=== PATIENT | female | born 1995 | race Two or more races ===

== ENCOUNTER → 2016-10-05 00:14 | Emergency (ER) | payer OTHER ==
[2016-10-05 00:25] VITALS: BP 97/62
== END | disposition left against medical advice (07) ==
LOC: ED 00:14
DX: R53.1 Weakness (principal); Z53.21 Procedure and treatment not carried out due to patient leaving prior to being seen by health care provider

== ENCOUNTER 2017-04-14 13:04 | Emergency (ER) | payer OTHER ==
--- NOTE | 2017-04-14 14:47 | ED ---
Complex/Multi-Sys Presentation - History Of Current Complaint Chief Complaint: EDGeneral Time Seen by Provider: 04/14/17 13:27 - Allergies/Home Medications Allergies/Adverse Reactions: Allergies Allergy/AdvReac Type Severity Reaction Status Date / Time No Known Allergies Allergy Verified 02/26/15 20:39 PMH/Surg Hx/FS Hx/Imm Hx Infectious Disease History: No Infectious Disease History: Denies: Traveled Outside the [place] in Last 30 Days - Social History Alcohol Use: None Substance Use Type: Reports: None Smoking Status (MU): Never Smoked Tobacco Physical Exam Vital Signs On Initial Exam: Initial Vitals Temp Pulse Resp BP Pulse Ox 98.5 F 132 20 136/89 100 04/14/17 13:13 04/14/17 13:13 04/14/17 13:13 04/14/17 13:13 04/14/17 13:13 Diagnostics - Vital Signs Vital Signs Temp Pulse Resp BP Pulse Ox 04/14/17 13:13 98.5 F 132 20 136/89 100 - Laboratory Lab Statement: Any lab studies that have been ordered have been reviewed, and results considered in the medical decision making process. Complex Multi-Symp Course/Dx - Diagnoses Provider Diagnoses: Encounter for medication refill Discharge - Discharge Plan Condition: Stable Disposition: HOME Patient Education Materials: Quetiapine (By mouth) Referrals: [facility] - Domo QUIÑONEZ [Primary Care Provider] - [facility] [employer] [[employer], APPLICATION, OTHER] - Additional Instructions: Please follow up to be seen by psychiatrist as soon as possible. Recommend calling again and possibly getting a new psychiatrist.
[2017-04-14 15:06] VITALS: BP 116/77
== END 2017-04-14 15:07 | disposition home or self-care (01) ==
LOC: ED 13:04
DX: Z76.0 Encounter for issue of repeat prescription (principal)
CPT/HCPCS: 99282

== ENCOUNTER 2017-09-19 18:34 | Inpatient (IN) | payer OTHER ==
[2017-09-19 19:29] LABS: ABS Basophils 0 10^3/ul (0-0.2); ABS Eosinophils 0.2 10^3/ul (0-0.6); ABS Lymphocytes 1.2 10^3/ul (1.0-4.8); ABS Monocytes 0.5 10^3/ul (0-0.8); ABS Neutrophils 5.5 10^3/ul (1.5-7.7); ABS Nucleated RBC 0 10^3/ul; Eosinophil % 3.1 % (0-6); Hematocrit 40 % (35-47); Hemoglobin 13.8 g/dl (12.0-16.0); Lymphocyte % 16.2 % (25-47); Mean Corpuscular HGB Conc 34 g/dl (31-36); Mean Corpuscular Hemoglobin 33 pg (27-31); Mean Corpuscular Volume 95 fL (80-97); Mean Platelet Volume 6.1 um3 (7.4-10.4); Nucleated Red Blood Cells % 0.1; Platelet Count 355 10^3/ul (150-450); Red Blood Count 4.24 10^6/ul (4.0-5.4); Red Cell Distribution Width 14 % (10.5-15); White Blood Count 7.5 10^3/ul (3.5-10.8)
[2017-09-19 19:53] LABS: EGFR Non-African American 64.7 (>60)
[2017-09-19 20:17] LABS: Urine Appearance Clear; Urine Blood Negative (Negative); Urine Color Yellow; Urine Ketones Negative (Negative); Urine Protein Negative (Negative); Urine Specific Gravity 1.014 (1.010-1.030); Urine Urobilinogen Negative (Negative)
--- NOTE | 2017-09-20 01:03 | ED ---
Krystin Burgess Jason, scribed for Lucinda Dudley MD on 09/19/17 at 1911 . Psychiatric Complaint - HPI Summary HPI Summary: This patient is a 21 year old F BIBA to [facility] with a chief complaint of SI since this afternoon. She states she took 20 pills of 2 mg of Xanax pills along with a glass of wine. I did this because I got dumped today and my friends called the ambulance. The patient includes that her last menstrual period was 2 days ago. It lasted 1 day because I have an IUD. The patient rates the pain 0/10 in severity. Symptoms aggravated by social stress. Symptoms alleviated by nothing. Patient denies auditory hallucinations, visual hallucinations, and HI. Additionally, she has a history of anxiety, bipolar disorder, and ADD. - History Of Current Complaint Chief Complaint: EDMentalHealth Time Seen by Provider: 09/19/17 18:52 Hx Obtained From: Patient Onset/Duration: Sudden Onset, Resolved Timing: Constant Aggravating Factor(s): Recent Stress - breakup with significant other Alleviating Factor(s): Nothing Associated Signs And Symptoms: Positive: Negative - auditory hallucinations, visual hallucinations, and SI Has Suicidal: Reports: Thoughts, Demonstrates Gesture - took 20 2 mg xanax pills Has Homicidal: Denies: Thoughts - Allergies/Home Medications Allergies/Adverse Reactions: Allergies Allergy/AdvReac Type Severity Reaction Status Date / Time No Known Allergies Allergy Verified 02/26/15 20:39 Home Medications: Home Medications ALPRAZolam TAB* [Xanax TAB*] 2 mg PO DAILY PRN 09/19/17 [History Confirmed 09/19] Dextroamphetamine/Amphetamine [Dextroamp-Amphetamin 30 mg Tab] 30 mg PO DAILY [History Confirmed 09/19/17] [place] Carbonate TAB* 300 mg PO DAILY 09/19/17 [History Confirmed 09/19/17] QUEtiapine TAB* [SEROquel TAB*] 100 - 200 mg PO BEDTIME 09/19/17 [History Confirmed 09/19/17] PMH/Surg Hx/FS Hx/Imm Hx Previously Healthy: No Endocrine/Hematology History: Denies: Hx Diabetes Cardiovascular History: Denies: Hx Hypertension Psychiatric History: Reports: Hx Anxiety, Hx Bipolar Disorder - Surgical History Surgery Procedure, Year, and Place: n/a Hx Anesthesia Reactions: No Infectious Disease History: No Infectious Disease History: Denies: Traveled Outside the [place] in Last 30 Days - Family History Known Family History: Positive: Diabetes, Other - cancer - Social History Alcohol Use: Occasionally Substance Use Type: Reports: None Smoking Status (MU): Never Smoked Tobacco Review of Systems Psychological: Other - Negative HI, auditory hallucinations, and visual hallucinations Positive: Other - SI All Other Systems Reviewed And Are Negative: Yes Physical Exam - Summary Physical Exam Summary: GENERAL: ~Patient is a well-developed and nourished F who is lying comfortable in the stretcher. ~Patient is not in any acute respiratory distress. HEAD AND FACE: Normocephalic EYES: PERRLA, EOMI x 2. EARS: Hearing grossly intact. MOUTH: Oropharynx within normal limits. NECK: Supple, trachea is midline, no adenopathy, no JVD, no carotid bruit. CHEST: Symmetric, no tenderness at palpation LUNGS: Clear to auscultation bilaterally. No wheezing or crackles. CVS: Regular rate and rhythm, S1 and S2 present, no murmurs or gallops appreciated. ABDOMEN: Soft, non-tender. Bowel sounds are normal. No abdominal abnormal pulsations. EXTREMITIES: Full ROM in all major joints, no edema, no cyanosis or clubbing. NEURO: Alert and oriented x 3. No acute neurological deficits. Speech is normal and follows commands. SKIN: Dry and warm Psych: Positive SI, no HI, no visual or auditory hallucinations. Good insight. Linear thought process and content. Triage Information Reviewed: Yes Vital Signs On Initial Exam: Initial Vitals Temp Pulse Resp BP Pulse Ox 99.0 F 110 16 97/54 100 09/19/17 18:49 09/19/17 18:49 09/19/17 18:49 09/19/17 18:49 09/19/17 18:49 Vital Signs Reviewed: Yes Diagnostics - Vital Signs Vital Signs Temp Pulse Resp BP Pulse Ox 09/19/17 18:49 99.0 F 110 16 97/54 100 - Laboratory Result Diagrams: 09/19/17 19:21 09/19/17 19:21 Lab Statement: Any lab studies that have been ordered have been reviewed, and results considered in the medical decision making process. - EKG 1934 Cardiac Rate: NL EKG Rhythm: Sinus Rhythm - 89 bpm Ectopy: None Course/Dx - Course Course Of Treatment: Patient was cleared for a mental health evaluation at 1999 Assessment/Plan: Patient was evaluated by Dr. Modi (psychiatrist) and, at 2304 , Bipin Soto reported to Dr. Dudley that the psychiatrist recommends involuntary admission. The patient is agreeable with this plan. - Differential Dx/Clinical Impression Provider Diagnosis: Depression Discharge - Sign-Out/Discharge Documenting (check all that apply): Discharge - Discharge Plan Condition: Stable Disposition: ADMITTED TO [facility] Referrals: [facility] - Domo QUIÑONEZ [Primary Care Provider] - The documentation as recorded by the Krystin aleman Jason accurately reflects the service I personally performed and the decisions made by , Lucinda Dudley MD.
--- NOTE | 2017-09-20 14:54 | PN ---
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 Patient denies SI but school and friends are extremely concerned about her safety. Objective: young female; irritable; labile Assessment: Bipolar [place] Plan: No available adult beds on the [facility]. Will transfer to appropriate [facility] receiving facility. Vital Signs Temp Pulse Resp BP Pulse Ox 97.1 F 85 16 88/62 85 09/20/17 10:09 09/20/17 10:09 09/20/17 10:09 09/20/17 10:09 09/20/17 10:09 Lab Results - Entire Visit 09/19/17 09/19/17 09/19/17 20:08 20:08 19:21 WBC 7.5 RBC 4.24 Hgb 13.8 Hct 40 MCV 95 MCH 33 H MCHC 34 RDW 14 Plt Count 355 MPV 6.1 L Neut % (Auto) 73.5 Lymph % (Auto) 16.2 L [place] % (Auto) 6.5 Eos % (Auto) 3.1 Baso % (Auto) 0.7 Absolute Neuts (auto) 5.5 Absolute Lymphs (auto) 1.2 Absolute Monos (auto) 0.5 Absolute Eos (auto) 0.2 Absolute Basos (auto) 0 Absolute Nucleated RBC 0 Nucleated RBC % 0.1 Sodium Potassium Chloride Carbon Dioxide Anion Gap BUN Creatinine Est GFR ( Amer) Est GFR (Non-Af Amer) BUN/Creatinine Ratio Glucose Calcium Total Bilirubin AST ALT Alkaline Phosphatase Total Protein Albumin Globulin Albumin/Globulin Ratio TSH Beta HCG, Quant Urine Color Yellow Urine Appearance Clear Urine pH 6.0 Ur Specific [place] 1.014 Urine Protein Negative Urine Ketones Negative Urine Blood Negative Urine Nitrate Negative Urine Bilirubin Negative Urine Urobilinogen Negative Ur Leukocyte Esterase Negative Urine Glucose Negative Salicylates Urine Opiates Screen None detected Acetaminophen Ur Barbiturates Screen None detected Ur Phencyclidine Scrn None detected Ur Amphetamines Screen Presumptive positive A U Benzodiazepines Scrn Presumptive positive A [place] Urine Cocaine Screen Presumptive positive A U Cannabinoids Screen None detected Serum Alcohol 09/19/17 19:21 WBC RBC Hgb Hct MCV MCH MCHC RDW Plt Count MPV Neut % (Auto) Lymph % (Auto) [place] % (Auto) Eos % (Auto) Baso % (Auto) Absolute Neuts (auto) Absolute Lymphs (auto) Absolute Monos (auto) Absolute Eos (auto) Absolute Basos (auto) Absolute Nucleated RBC Nucleated RBC % Sodium 140 Potassium 3.5 Chloride 105 Carbon Dioxide 29 Anion Gap 6 BUN 19 Creatinine 1.07 H Est GFR ( Amer) 83.2 Est GFR (Non-Af Amer) 64.7 BUN/Creatinine Ratio 17.8 Glucose 97 Calcium 9.3 Total Bilirubin 0.40 AST 15 ALT 9 Alkaline Phosphatase 50 Total Protein 6.8 Albumin 4.2 Globulin 2.6 Albumin/Globulin Ratio 1.6 TSH 0.58 Beta HCG, Quant < 0.60 Urine Color Urine Appearance Urine pH Ur Specific [place] Urine Protein Urine Ketones Urine Blood Urine Nitrate Urine Bilirubin Urine Urobilinogen Ur Leukocyte Esterase Urine Glucose Salicylates < 2.50 Urine Opiates Screen Acetaminophen < 15 Ur Barbiturates Screen Ur Phencyclidine Scrn Ur Amphetamines Screen U Benzodiazepines Scrn [place] < 0.10 L Urine Cocaine Screen U Cannabinoids Screen Serum Alcohol < 10
[2017-09-20] MEDS ORDERED: Nicotine PATCH 14 MG/24 HR* PATCH TRANSDERM ONE (19:21)
[2017-09-20] MEDS ORDERED: QUEtiapine TAB* 100 MG PO ONE (21:10)
[2017-09-20] MEDS ORDERED: Lithium Carbonate TAB* 300 MG PO ONE (21:10)
--- NOTE | 2017-09-21 06:46 | ED ---
Akbar Burgess Nikita, scribed for Matt Vergara MD on 09/20/17 at 205 . Progress - Progress Note Progress Note: The patient was signed out to Dr. Vergara, awaiting bed in [facility]. In the ED course, the patient was given a nicotine patch 14mg. This patient is signed out to Dr. Malloy, awaiting bed in [facility]. - Consult/PCP Time Called: 21:40 Course/Dx - Course Course Of Treatment: Patient was cleared for a mental health evaluation at 1999 - Diagnoses Provider Diagnoses: Depression Discharge - Sign-Out/Discharge Documenting (check all that apply): Sign-Out Patient Signing out patient TO: Radu Malloy - Discharge Plan Condition: Stable Disposition: ADMITTED TO [facility] Referrals: [facility] - Domo [Primary Care Provider] - - Billing Disposition and Condition Condition: STABLE Disposition: [facility] The documentation as recorded by the Akbar aleman Nikita accurately reflects the service I personally performed and the decisions made by Jai miller Kirk, MD.
--- NOTE | 2017-09-21 08:50 | PN ---
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 Patient denies SI but school and friends remain extremely concerned about her safety. Objective: young female; irritable; labile Assessment: Bipolar Alda Plan: No available adult beds on the [facility]. Will transfer to appropriate [facility] receiving facility. Vital Signs Temp Pulse Resp BP Pulse Ox 97.9 F 87 16 102/74 98 09/20/17 21:30 09/20/17 21:30 09/20/17 21:30 09/20/17 21:30 09/20/17 21:30 Lab Results - Entire Visit 09/19/17 09/19/17 09/19/17 20:08 20:08 19:21 WBC 7.5 RBC 4.24 Hgb 13.8 Hct 40 MCV 95 MCH 33 H MCHC 34 RDW 14 Plt Count 355 MPV 6.1 L Neut % (Auto) 73.5 Lymph % (Auto) 16.2 L [place] % (Auto) 6.5 Eos % (Auto) 3.1 Baso % (Auto) 0.7 Absolute Neuts (auto) 5.5 Absolute Lymphs (auto) 1.2 Absolute Monos (auto) 0.5 Absolute Eos (auto) 0.2 Absolute Basos (auto) 0 Absolute Nucleated RBC 0 Nucleated RBC % 0.1 Sodium Potassium Chloride Carbon Dioxide Anion Gap BUN Creatinine Est GFR ( Amer) Est GFR (Non-Af Amer) BUN/Creatinine Ratio Glucose Calcium Total Bilirubin AST ALT Alkaline Phosphatase Total Protein Albumin Globulin Albumin/Globulin Ratio TSH Beta HCG, Quant Urine Color Yellow Urine Appearance Clear Urine pH 6.0 Ur Specific [place] 1.014 Urine Protein Negative Urine Ketones Negative Urine Blood Negative Urine Nitrate Negative Urine Bilirubin Negative Urine Urobilinogen Negative Ur Leukocyte Esterase Negative Urine Glucose Negative Salicylates Urine Opiates Screen None detected Acetaminophen Ur Barbiturates Screen None detected Ur Phencyclidine Scrn None detected Ur Amphetamines Screen Presumptive positive A U Benzodiazepines Scrn Presumptive positive A [place] Urine Cocaine Screen Presumptive positive A U Cannabinoids Screen None detected Serum Alcohol 09/19/17 19:21 WBC RBC Hgb Hct MCV MCH MCHC RDW Plt Count MPV Neut % (Auto) Lymph % (Auto) [place] % (Auto) Eos % (Auto) Baso % (Auto) Absolute Neuts (auto) Absolute Lymphs (auto) Absolute Monos (auto) Absolute Eos (auto) Absolute Basos (auto) Absolute Nucleated RBC Nucleated RBC % Sodium 140 Potassium 3.5 Chloride 105 Carbon Dioxide 29 Anion Gap 6 BUN 19 Creatinine 1.07 H Est GFR ( Amer) 83.2 Est GFR (Non-Af Amer) 64.7 BUN/Creatinine Ratio 17.8 Glucose 97 Calcium 9.3 Total Bilirubin 0.40 AST 15 ALT 9 Alkaline Phosphatase 50 Total Protein 6.8 Albumin 4.2 Globulin 2.6 Albumin/Globulin Ratio 1.6 TSH 0.58 Beta HCG, Quant < 0.60 Urine Color Urine Appearance Urine pH Ur Specific [place] Urine Protein Urine Ketones Urine Blood Urine Nitrate Urine Bilirubin Urine Urobilinogen Ur Leukocyte Esterase Urine Glucose Salicylates < 2.50 Urine Opiates Screen Acetaminophen < 15 Ur Barbiturates Screen Ur Phencyclidine Scrn Ur Amphetamines Screen U Benzodiazepines Scrn [place] < 0.10 L Urine Cocaine Screen U Cannabinoids Screen Serum Alcohol < 10
--- NOTE | 2017-09-21 09:58 | PN ---
Progress Note - Progress Note Date of Service: 09/21/17 Note: ED Flex day #2 for this 21 y.o. [employer] with a history of bipolar disorder who came in following an intentional OD on drugs and medications. Patient denies SI but school and friends are extremely concerned about her safety. Subjective: Patient denies any complaints or concerns at this time. Reports no need for medications or additions to medical plan established for patient. Did not sleep well. Does not want medications at this time for pain or any other reason. Objective: VS stable No change to current medications Alert and cooperative. Appearance: WDW, comfortable, pleasant, alert Skin: Soft dry skin, no lesions. Eyes: ROSA, EOMI, Conjunctiva pink with no redness or exudates. Neck: Full range of motion. Pulm: Chest symmetrical expansion. No deformities on posterior chest wall. Lungs clear to auscultation and percussion, without adventitious sounds. CV: Heart soundsRRR, Normal S1 and single S2. No S3, S4, rubs, or murmurs. Musculoskeletal: ROM WNL in all extremities. No deformities noted. Neuro: A&OX3 Psych: Logical, coherent Assessment: Patient has participated in plan with compliance to medications while awaiting assessment. Dx at this time remains drug OD with intention. Bipolar. Still awaiting transfer. Plan: Continue mediations as prescribed. Will continue to monitor psych behaviors and need for any medication. Will provide a patient to provider assessment within every 24 hours during stay until safe discharge/transfer/ admission plan is established.
[2017-09-21] MEDS ORDERED: Al Hydrox/Mg Hydrox/Simet LIQ* 30 ML UDC PO PRN (17:32)
[2017-09-21] MEDS ORDERED: Acetaminophen TAB* 325 MG PO PRN (17:32)
[2017-09-21] MEDS ORDERED: Nicotine Inhaler* 10 MG AMP INH PRN (18:35)
[2017-09-21] MEDS ORDERED: Mouth Piece, Nicotine* 1 EACH CARTRIDGE INH PRN (18:35)
[2017-09-21] MEDS: Nicotine Patch Removal NOTE PATCH OFF SCH (22:12)
[2017-09-22] MEDS: Vitamin THERAPEUTIC TAB PO SCH (09:27)
[2017-09-22] MEDS ORDERED: LORazepam TAB(*) 1 MG PO SCH (11:00)
[2017-09-22] MEDS ORDERED: Gabapentin CAP(*) 100 MG PO PRN (12:04)
[2017-09-22] MEDS ORDERED: Lithium Carbonate TAB* 300 MG PO SCH ×2 (13:00→21:00)
--- NOTE | 2017-09-22 18:46 | HP ---
Amended report to enter cosigning physician. HISTORY AND PHYSICAL: DATE OF ADMISSION: 09/21/17 SUPERVISING PSYCHIATRIST: Dr. Garry Modi* (dictated by CHASIDY Ontiveros) . JUSTIFICATION FOR ADMISSION: The patient had an overdose attempt via alprazolam and told her friend who called [place] [employer], she was brought to the emergency room via police. The patient merits hospitalization for immediate safety and stabilization. CHIEF COMPLAINT: "I told a lot of people that I was trying to commit suicide." HISTORY OF PRESENT ILLNESS: Juanita is a 21-year-old [place] female, who attends [employer]. She is a senior in [employer] school and belongs to [employer]. She reports recent increase in alprazolam use along with alcohol and cocaine. She states that she frequently blacks out mostly on weekends. She states that she purposefully took excessive amounts of alprazolam while inebriated. She states that she has been in a self- destructive pattern and has mood fluctuations. She reports a history of being diagnosed with bipolar disorder after seeing a overlock elastic attacher in [facility] and told she had lithium imbalance in her brain. She identifies periods of hypomania where she is very efficient, ambitious. She also has periods of depressed mood, anhedonia, isolation, and irritability. She identifies history of panic attacks along with persistent internal anxiety. The patient states she recently broke up with her boyfriend, and then had multiple sex partners, while they were no longer dating. They reunited and he broke up with her when he found out that she had been with multiple sex partners. The patient states that she did not want to be admitted to the mental health unit, but endorses insight into need for more psychiatric services. The patient states she has been seeing local psychiatrist, Dr. Farhan Lea, for approximately 1 year and has been prescribed lithium, quetiapine, and alprazolam. She states that she is "taking more than I should" in regards to Xanax and takes up to six 2 mg bars at a time. She was unsure about her lithium , her Seroquel doses. This sports writer called [facility], verified that the lithium is prescribed 300 mg b.i.d. and quetiapine is 200 mg one-half to 1 tab q.h.s. p.r.n., alprazolam is 2 mg daily. According to [facility], she was also prescribed Adderall [address] Lea, [facility] reference # [id number]. The patient denies history of self-harm with previous suicide attempt. She denies audio or visual hallucinations, depersonalization or delusions. She denies HI or . Denies having a history of aggression or violence. PAST PSYCHIATRIC HISTORY: As stated above, the patient reports previous diagnosis of bipolar disorder and has been seeing Dr. Lea for the past year. She states she has never really pursued therapy. TRAUMA/ABUSE HISTORY: The patient reports that she and her family are emotionally distant in that she and her mother are starting to come to terms with their relationships. Junaita states her mother was often neurotic and instilled academic competition into her and her sister. Juanita denies other trauma or abuse. PAST MEDICAL HISTORY: The patient had an IUD in place approximately 6 months ago. She otherwise denies history of head injury, seizure, or surgeries. ALLERGIES: No known drug allergies. PEARL DIGGER HISTORY: LMP last week. The patient denies offer of STI testing. PRIMARY CARE PROVIDER: [facility]. Current psychiatrist, Dr. Farhan Lea, as noted above. FAMILY PSYCHIATRIC HISTORY: The patient reports her father is a heavy alcohol user. She suspects both her mother and her sister have mild mental health problems but she is not aware of any diagnosis or medications that they take. SOCIAL HISTORY: Juanita is the youngest of 2 daughters by parents who live in [place]. Both parents are attorneys. Her sister is a [employer] graduate and just finished law school in [facility]. 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 She lives off campus in a house with 20 of her sorority friends. 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 She identifies very positive social support including her friends. Her mother is here visiting from [facility]. SUBSTANCE USE HISTORY: The patient reports she usually does not drink alcohol and that she is "allergic to it." She identifies this is due to allergy to alcohol common in people. she reports experimenting with MDMA and LSD once or twice in her college career. She identifies using recreational cocaine for the past 2 years and she states she does so approximately once a month. She did not recall the last time she used cocaine and was surprised when notified that her urine was positive for cocaine. LEGAL HISTORY: The patient denies legal history. She identifies as heterosexual. As stated above, she recently broke up with her boyfriend and is not in a relationship at this time. REVIEW OF SYSTEMS: Constitutional: Negative. No fever, chills, or fatigue. ENT: Negative. Cardiovascular: Negative. Denies chest pain or palpitations. Respiratory: Negative. Denies shortness of breath or cough. Genitourinary: Negative. Musculoskeletal: Negative. Neurological: Negative. PHYSICAL EXAMINATION GENERAL: The patient is well appearing and in no distress. VITAL SIGNS: Height 5 feet 3 inches, weight approximately 100 pounds. Most recent vital signs, T 97.6, P 77, respiratory rate 14, O2 saturation 100%, BP 119/67. HEENT: Head and face, normal head and face inspection. Eyes: Positive EOMI. PERRL. Conjunctivae clear. NECK: Supple. Full ROM. Trachea midline. RESPIRATORY: Lung sounds clear to auscultation, breath sounds present. CARDIOVASCULAR: Heart RRR. Pulses are symmetrical in both upper and lower extremities. MUSCULOSKELETAL: Normal strength, ROM intact. NEUROLOGIC: Normal sensory and motor intact. Alert and oriented x3 with normal gait. Cerebellar function intact. SKIN: Warm and dry. Color reflects adequate perfusion. MENTAL STATUS EXAM: The patient is a thin-framed female with long black hair. She is well groomed, wearing her own clothing and is wearing mascara. She appears stated age, but also presents as somewhat older. She is cooperative with interview and answers questions fully. She is alert and oriented x3. Concentration is good. Her memory is 3/3. Her mood is dysphoric and her affect is tearful. Speech is soft and articulate. Thought process is circumstantial in regards to precipitating event and discharge planning. Content of thought is negative for active SI. Her insight and judgment are tenuous at this time. Fund of knowledge is excellent and her level of intelligence appears to be above average as demonstrated through conversation and academic achievements. LABORATORY DATA: Obtained in the emergency department, CBC was grossly unremarkable. CMP within normal limits. TSH 0.58. HCG negative. Hemoglobin A1c 5.0. Triglycerides 56, cholesterol 123, LDL 63, HDL 48.5. These are all within normal limits. Urinalysis within normal limits. Toxicology in the ED was negative for salicylates, acetaminophen, lithium, or alcohol. Urine drug screen positive for amphetamines, benzodiazepines, and cocaine. DIAGNOSES: Bipolar 2 disorder by history, rule out substance use disorder; benzodiazepine use disorder; cocaine use disorder. ASSESSMENT: Juanita is a 21-year-old [place] female, who is attending [employer] with plans to graduate next month. She presented to the emergency department on 09/19/17 after her friends called the police. She had told many people that she made suicidal gesture by taking 20 2-mg alprazolam tabs while drinking alcohol. She was medically cleared in the emergency department and awaited bed availability until evening of 09/21/17. The patient reports she has tried to taper herself from alprazolam, but is more motivated to do so at this time. She is eager to stabilize and return to [employer]. PLAN: The patient is admitted to the adult behavioral services unit on 9.39 status. She was initially admitted on q.15-minute observations after meeting with the sports writer and social work manager. Allowed to decrease to 30-minute observation , allowed to use computers for communication with [employer]. The patient will be allowed to go staff pass. We discussed the use of gabapentin as needed for anxiety and discontinuation of benzodiazepines. I started the [facility] protocol to monitor for alcohol and benzodiazepine withdrawal. We will start lithium at 300 mg at bedtime along with quetiapine as these were previously prescribed. We will obtain MMPI for diagnostic clarification. We will titrate medications to efficacy and monitor for mood and thought content. Estimated length of stay is 3 to 5 days. Discharge planning will include family involvement and referral to outpatient providers. YISSEL NAVA NP [id number]/[facility] #: [id number] CATARINA
[2017-09-22] MEDS: Nicotine Patch Removal NOTE PATCH OFF SCH (20:52)
[2017-09-22] MEDS ORDERED: QUEtiapine TAB* 100 MG PO SCH (21:00)
[2017-09-23 07:52] VITALS: BP 99/72
[2017-09-23] MEDS: Vitamin THERAPEUTIC TAB PO SCH (08:18)
--- NOTE | 2017-09-23 15:38 | DS ---
CC: [facility]* DISCHARGE SUMMARY DATE OF ADMISSION: 09/21/17 DATE OF DISCHARGE: 09/23/17 SUPERVISING PSYCHIATRIST: Dr. Garry Modi* (dictated by CHASIDY Ontiveros). DISCHARGE DIAGNOSES: 1. Bipolar 2 disorder. 2. Benzodiazepine use disorder. 3. Amphetamine use disorder. 4. Cocaine use disorder. CONDITION AT TIME OF DISCHARGE: Improved. Patient, her mother, this keno writer / runner and social service assistant met today to discuss discharge planning. Patient is agreeable to discontinue controlled substances. She, her friends and her mother stated understanding of ways to properly dispose of old prescriptions. Patient denies suicidal ideation or urges for self harm. She reports her mood is improved. She states that being here was important symbolically and she is agreeable to referral to [facility] for continued outpatient mental health treatment. Her mother had questions about detoxification process which the patient has undergone. She expressed being surprised by patient's suicidality and looking back has noted that the patient has been more distant from her family the past 2 years. This keno writer / runner spoke with patient's mother separately and gave her resources for Kamlesh and JOSELYN to continue supporting her daughter. Patient reports readiness for discharge. She is eager to return to [facility]. She states that she is planning to resume courses as soon as possible and to graduate from [employer] next month. Patient and her mother have advocate for release and expressed concern for increased decompensation if admission continues due to obligation to treat in restrictive setting, treatment team agreed upon discharge. MENTAL STATUS EXAM: Patient is a thin framed female who appears slightly older than stated age due to her mature demeanor. She is well groomed wearing her own clothing. She sits in a comfortable position on the couch with open posture. She answers questions fully and is a good historian. She is alert and oriented x3. Her eye contact is good. Her speech is soft and articulate. Insight and judgement are good in this setting. Patient denies SI, HI, or BI. There is no concern for perceptual disturbances at this time. Fund of knowledge is excellent and her estimated intelligence above average. INSTRUCTIONS GIVEN TO THE PATIENT: A. Medications: Gahanna ER 300 p.o. q.h.s.; gabapentin 10 mg p.o. b.i.d. p.r.n. anxiety, as well as substance use withdrawal; quetiapine 200 mg 1-2 tabs at bedtime p.r.n. insomnia. Those were electronically prescribed to [facility] and patient was given a 2 week supply. She was notified to call keno writer / runner if she needs another 2 week supply while awaiting a prescriber at [facility]. B. Diet: Regular. C. Activity: Ambulation as tolerated. D. Tobacco cessation: Assistance is offered to patient. E. There are no pending labs or diagnostic studies at the time of discharge. F. Substance abuse followup: Patient agreed to continue outpatient counseling at [facility] for bipolar disorder and polysubstance use. Patient declined offer of inpatient substance abuse treatment referral. HOSPITAL COURSE: Part A: Reason for admission: The patient presented to the emergency department after her friends called police. She had taken overdose of 22 mg Xanax tablets along with drinking alcohol in a suicide attempt. She presented to the Emergency Department and when medically cleared she was transferred to the Flex Unit while awaiting bed availability on the BSU. Patient minimized need for treatment and therefore was admitted under involuntary status. Bed opened on the BSU on the evening of 09/21. Part B: Psychiatric treatment rendered: While in the Emergency Department patient's laboratory data included a CBC which was grossly unremarkable. Her chemistry panel was within normal limits. CMP was within normal limits. TSH 0.58. HCG was negative. We added lipids on due to quetiapine treatment. Hemoglobin A1c 5.0. Lipid panel unremarkable. Her urinalysis was within normal limits. Toxicology was significant for amphetamines, benzodiazepines and cocaine. Her lithium level was less than 0.1 upon arrival. After meeting with keno writer / runner, patient agreed to trial gabapentin for benzodiazepine withdrawal and anxiety. She did not experience the need for this medication, but will be continued to prescribed at this time. Clarified medication doses. Patient was agreeable to lithium dose of 300 mg as a starting dose. The following morning her lithium level was 0.19 and she was notified that this was subtherapeutic. Will continue lithium dose of 300 mg at bedtime in an extended formulary. Patient presented as fatigued and lethargic. She likely is in need of sleep after much alcohol and substance use. Continued to deny suicidal ideation. She was safe on all checks with behavioral control. She was decreased to 30 minute observation and allowed staff pass. She was offered to use the computer to contact her [employer] professors. Also she was in contact with [employer] corporate traffic manager to further liaison to [facility]. As stated above, both patient and her mother advocated for her discharge from this hospital so she could return to campus and pursue her final month at [facility]. We encouraged continued outpatient services at [facility] , as well as identifying services in [facility] where she will be moving after graduation. The patient will be given discharge instructions by nursing staff and be discharged with her mother to return to her home and followup at [facility] this evening. YISSEL NAVA NP [id number]/[facility] #: [id number] CATARINA
== END 2017-09-23 14:50 | disposition home or self-care (01) | DRG 885 ==
LOC: ED 18:34 → BSU 09-21 17:10
PROVIDERS: ADMIT Psychiatry & Neurology Psychiatry; ATTEND Psychiatry & Neurology Psychiatry
DX: F31.81 Bipolar II disorder (principal); R56.1 Post traumatic seizures; F15.90 Other stimulant use, unspecified, uncomplicated; F14.90 Cocaine use, unspecified, uncomplicated; F19.90 Other psychoactive substance use, unspecified, uncomplicated; F98.8 Other specified behavioral and emotional disorders with onset usually occurring in childhood and adolescence; T42.4X2A Poisoning by benzodiazepines, intentional self-harm, initial encounter; F41.8 Other specified anxiety disorders; Z81.8 Family history of other mental and behavioral disorders; Z81.1 Family history of alcohol abuse and dependence; Y92.9 Unspecified place or not applicable; Z83.3 Family history of diabetes mellitus; Z80.9 Family history of malignant neoplasm, unspecified
CPT/HCPCS: 36415; 80053; 80061; 80178; 80307; 80320; 80329; 81003; 83036; 84443; 84702; 85025; 93005; 99238; 99284; A9270-GY; G0480